=== PATIENT | male | born 1995 | race Caucasian/White ===

== ENCOUNTER 2024-08-18 16:42 | Emergency (ER) | payer OTHER ==
[2024-08-18] MEDS ORDERED: Lidocaine 1% PF 5 ML VIAL ONE ×2 (17:13→17:21)
== END 2024-08-18 17:59 | disposition home or self-care (01) ==
LOC: MADERS 16:42
DX: S61.311A Laceration without foreign body of left index finger with damage to nail, initial encounter (principal); W26.0XXA Contact with knife, initial encounter; Y93.G9 Activity, other involving cooking and grilling
CPT/HCPCS: 12001; 99282